=== PATIENT | female | born 1970 | race African-American/Black ===

== ENCOUNTER 2016-07-10 19:12 | Emergency (ER) | payer OTHER ==
[~2016-07-10 19:12] MED LIST: ASA5GR PO; ASAB PO; CRESTOR10 PO; EFFEXOR; FORTAMET500 MG PO; GLUCPH PO; LORTAB 5 PO; PRAVACHOL80 MG PO; PREV30 PO; PRIN20 PO; PYR200 PO; SYMBICORT 160/41 INH INH; TOPAMAX50 MG PO; VALTREX1 GM PO; X5 PO; XANAX XR1 MG PO; XANAX1 MG PO; ZESTORETIC PO
== END 2016-07-10 21:20 | disposition home or self-care (01) ==
LOC: ER 19:12
DX: M54.2 Cervicalgia (principal); M54.5 Low back pain; I10 Essential (primary) hypertension; E11.9 Type 2 diabetes mellitus without complications; Z88.0 Allergy status to penicillin; Z88.8 Allergy status to other drugs, medicaments and biological substances; Z91.040 Latex allergy status; Z79.84 Long term (current) use of oral hypoglycemic drugs; Z79.82 Long term (current) use of aspirin; Z79.899 Other long term (current) drug therapy; V39.9XXA Occupant (driver) (passenger) of three-wheeled motor vehicle injured in unspecified traffic accident, initial encounter
CPT/HCPCS: 72100; 72125; 96372; 99284; J1885; J2360